=== PATIENT | female | born 1950 | race African-American/Black ===

== ENCOUNTER 2020-07-01 11:00 | Emergency (ER) | payer MEDICARE, OTHER ==
[~2020-07-01] VITALS: Ht 162.6 cm; Wt 71.8 kg
[2020-07-01] MEDS ORDERED: LEVO50 PO (11:17)
[2020-07-01] MEDS ORDERED: MULT-1259 PO (11:17)
[2020-07-01] MEDS ORDERED: TIMO5DRO35 OU (11:17)
[2020-07-01] MEDS ORDERED: ASPI-728 PO (11:17)
[2020-07-01] MEDS ORDERED: ATEN-73 PO (11:17)
[2020-07-01] MEDS ORDERED: XALA2.5OS OU (11:17)
[2020-07-01 14:00] VITALS: BP 148/85
== END 2020-07-01 15:00 | disposition home or self-care (01) ==
LOC: EMS 11:14
DX: S93.601A Unspecified sprain of right foot, initial encounter (principal); W01.0XXA Fall on same level from slipping, tripping and stumbling without subsequent striking against object, initial encounter; Y93.89 Activity, other specified; Y92.89 Other specified places as the place of occurrence of the external cause; Y99.8 Other external cause status